=== PATIENT | male | born 1950 | race Caucasian/White ===

== ENCOUNTER 2021-07-07 11:48 | Emergency (ER) | payer MEDICARE ==
[~2021-07-07] VITALS: Ht 182.9 cm; Wt 109.8 kg
[2021-07-07] MEDS ORDERED: Voltaren100 GM TOP (15:28)
== END 2021-07-07 15:44 | disposition home or self-care (01) ==
LOC: ER 11:48
DX: M17.12 Unilateral primary osteoarthritis, left knee (principal); M23.307 Other meniscus derangements, unspecified meniscus, left knee; Z87.891 Personal history of nicotine dependence
CPT/HCPCS: 73564; 99283-25

== ENCOUNTER → 2021-09-26 | Outpatient (CLI) | payer MEDICARE ==
[~2021-09-26] MED LIST: Voltaren100 GM TOP
[2021-09-26 15:34] LABS: BASOPHILS ABSOLUTE AUTO 0.06 K/mm3 (0.00-0.23); BASOPHILS PERCENT AUTO 1 % (0-2); EOSINOPHILS ABSOLUTE AUTO 0.17 K/mm3 (0.00-0.68); EOSINOPHILS PERCENT AUTO 3 % (0-6); Hemoglobin 15.4 g/dL (13.5-17.5); IMMATURE GRAN ABSOLUTE AUTO 0.02 K/mm3 (0.00-0.10); IMMATURE GRAN PERCENT AUTO 0 % (0-1); LYMPHOCYTES ABSOLUTE AUTO 1.91 K/mm3 (0.84-5.20); LYMPHOCYTES PERCENT AUTO 33 % (21-46); MONOCYTES ABSOLUTE AUTO 0.49 K/mm3 (0.16-1.47); MONOCYTES PERCENT AUTO 8 % (4-13); Mean Corpuscular HGB 31.8 pg (26.0-34.0); Mean Corpuscular Volume 91 fL (80-100); Mean Platelet Volume 9.4 fL (9.1-12.4); NEUTROPHILS ABSOLUTE AUTO 3.17 K/mm3 (1.96-9.15); NEUTROPHILS PERCENT AUTO 55 % (41-73); Platelet Count 185 K/mm3 (150-400); RDW Coefficient Variation 11.9 % (11.7-14.2); RDW Standard Deviation 39.5 fL (35.1-46.3); Red Blood Cell Count 4.84 M/mm3 (4.30-5.90); White Blood Cell Count 5.82 K/mm3 (4.00-11.30)
[2021-09-26 15:43] LABS: Alanine Aminotransfer (ALT/SGP 74 U/L (12-78); Albumin, Blood 3.9 g/dL (3.4-5.0); Alk Phos 105 U/L (40-126); Anion Gap 9 mmol/L (6-16); Aspartate Aminotrans (AST/SGOT 38 U/L (12-37); Bilirubin, Total 0.4 mg/dL (0.1-1.0); Blood Urea Nitrogen 10 mg/dL (8-24); Bun/Creatinine Ratio 10.9 (12.0-20.0); CO2, Blood 27 mmol/L (21-32); Calcium, Blood 9.9 mg/dL (8.5-10.1); Chloride, Blood 99 mmol/L (98-108); Creatinine, Blood 0.92 mg/dL (0.60-1.20); Globulin, Blood 4.1 g/dL (2.2-4.0); Glomerular Filtration Rate >60 (60-); Glucose, Blood 343 mg/dL (70-99); Potassium, Blood 4.3 mmol/L (3.5-5.5); Sodium, Blood 135 mmol/L (136-145)
== END | disposition home or self-care (01) ==
LOC: LAB SHORT 15:30 → LAB 15:30
PROVIDERS: Physician Assistant
DX: E11.65 Type 2 diabetes mellitus with hyperglycemia (principal); N39.0 Urinary tract infection, site not specified
CPT/HCPCS: 80053; 83036; 85025; 87086; 87147

== ENCOUNTER → 2022-11-28 | Outpatient (CLI) | payer MEDICARE | END | disposition home or self-care (01) | LOC: LAB SHORT 15:28 | DX: E11.65 Type 2 diabetes mellitus with hyperglycemia (principal) | CPT/HCPCS: 36415; 83036 ==

== ENCOUNTER 2024-03-10 06:47 | Emergency (ER) | payer OTHER ==
[~2024-03-10] VITALS: Ht 182.9 cm; Wt 102.1 kg
[~2024-03-10 06:47] MED LIST changes: +ASPI81CH PO; +ATOR40TA PO; +BASAGLAR K100 UNIT/1 SC; +CODACE30 PO; +DULO30 PO; +Glipizide Xl2.5 MG PO; +INSULANI SC; +METF500 PO; +OZEMPIC0.25 MG/0. SC; +Percocet 5-3251 EACH PO; +TAMS.4ER PO
[2024-03-10] MEDS ORDERED: Ondansetron HCl 2 MG / ML 2ML Vial IV ONE (07:25)
[2024-03-10] MEDS ORDERED: Morphine Sulfate 4 MG/1 ML Injection IV ONE ×2 (07:25→09:05)
[2024-03-10] MEDS ORDERED: NS 1,000 ML IV SCH (07:25)
[2024-03-10 07:39] LABS: BASOPHILS ABSOLUTE AUTO 0.05 K/mm3 (0.00-0.23); BASOPHILS PERCENT AUTO 1 % (0-2); EOSINOPHILS ABSOLUTE AUTO 0.07 K/mm3 (0.00-0.68); EOSINOPHILS PERCENT AUTO 1 % (0-6); Hematocrit 47.8 % (37.0-53.0); Hemoglobin 16.4 g/dL (13.5-17.5); IMMATURE GRAN ABSOLUTE AUTO 0.03 K/mm3 (0.00-0.10); IMMATURE GRAN PERCENT AUTO 0 % (0-1); LYMPHOCYTES PERCENT AUTO 18 % (21-46); MONOCYTES ABSOLUTE AUTO 0.59 K/mm3 (0.16-1.47); MONOCYTES PERCENT AUTO 6 % (4-13); Mean Corpuscular HGB 29.8 pg (26.0-34.0); Mean Corpuscular HGB Conc 34.3 g/dL (31.5-36.5); Mean Corpuscular Volume 87 fL (80-100); Mean Platelet Volume 9.1 fL (9.1-12.4); NEUTROPHILS ABSOLUTE AUTO 6.99 K/mm3 (1.96-9.15); NEUTROPHILS PERCENT AUTO 74 % (41-73); Platelet Count 264 K/mm3 (150-400); RDW Coefficient Variation 12.6 % (11.7-14.2); Red Blood Cell Count 5.51 M/mm3 (4.30-5.90); White Blood Cell Count 9.43 K/mm3 (4.00-11.30)
[2024-03-10] MEDS ORDERED: Prochlorperazine Edisylate 10 mg Vial IV ONE (07:40)
[2024-03-10 09:03] LABS: Albumin, Blood 4.3 g/dL (3.4-5.0); Albumin/Globulin Ratio 0.9 (0.8-1.8); Bilirubin, Total 1.1 mg/dL (0.1-1.0); Bun/Creatinine Ratio 17.5 (12.0-20.0); Calcium, Blood 10.2 mg/dL (8.5-10.1); Creatinine, Blood 1.2 mg/dL (0.60-1.20); Globulin, Blood 4.8 g/dL (2.2-4.0); Magnesium, Blood 2.4 mg/dL (1.6-2.4); Potassium, Blood 4.6 mmol/L (3.5-5.5); Total Protein, Blood 9.1 g/dL (6.4-8.2)
[2024-03-10] MEDS ORDERED: Lidocaine 2% Jelly Uro-Jet UR ONE (09:10)
[2024-03-10 10:01] LABS: Source, Urine Foley catheter
[2024-03-10 10:04] LABS: Appearance, Urine Clear (Clear); Bilirubin, Urine Neg (Neg); Blood, Urine 4+ (Neg); Color, Urine Yellow (P-Yellow); Glucose Qualitative, Urine 4+ (Neg); Ketones, Urine 2+ (Neg); Leukocyte Esterase, Urine Neg (Neg); Nitrite, Urine Neg (Neg); Protein, Urine 1+ (Neg); Urobilinogen, Urine NORM (Normal)
[2024-03-10 10:15] LABS: Bacteria Rare /hpf; Squamous Epithelial Cells Rare /hpf (Few); White Blood Cells, Urine Not Seen /hpf (0-5)
[2024-03-10] MEDS ORDERED: TAMS.4ER PO (10:59)
[2024-03-10] MEDS ORDERED: MIRALAX17 GM PO (10:59)
[2024-03-10 11:00] VITALS: BP 136/83
== END 2024-03-10 11:22 | disposition home or self-care (01) ==
LOC: ER 06:47
PROVIDERS: Emergency Medicine
DX: N28.89 Other specified disorders of kidney and ureter (principal); N32.0 Bladder-neck obstruction; R33.8 Other retention of urine; K59.00 Constipation, unspecified; N13.30 Unspecified hydronephrosis; E11.9 Type 2 diabetes mellitus without complications; Z79.4 Long term (current) use of insulin; Z87.891 Personal history of nicotine dependence; Z79.84 Long term (current) use of oral hypoglycemic drugs; Z79.82 Long term (current) use of aspirin; Z79.899 Other long term (current) drug therapy
CPT/HCPCS: 51702; 74177; 80053; 81001; 83605; 83690; 83735; 85025; 96361-59; 96374-59; 96375-59; 96376-59; 99284-25; J0780; J2270; J2405; J7030; Q9967

== ENCOUNTER 2024-03-13 11:24 | Emergency (ER) | payer OTHER ==
[~2024-03-13] VITALS: Ht 182.9 cm; Wt 110.2 kg
[~2024-03-13 11:24] MED LIST changes: +MIRALAX17 GM PO
[2024-03-13 15:12] LABS: Source, Urine Foley catheter
[2024-03-13 15:18] LABS: Bilirubin, Urine Neg (Neg); Blood, Urine 4+ (Neg); Glucose Qualitative, Urine 4+ (Neg); Ketones, Urine Neg (Neg); Leukocyte Esterase, Urine 1+ (Neg); Nitrite, Urine Neg (Neg); Protein, Urine Neg (Neg); Urobilinogen, Urine NORM (Normal)
[2024-03-13 15:29] LABS: Appearance, Urine Clear (Clear); Color, Urine Pale Yellow (P-Yellow)
[2024-03-13 15:30] LABS: Bacteria Few /hpf; Squamous Epithelial Cells Rare /hpf (Few)
[2024-03-13 16:20] VITALS: BP 145/88
== END 2024-03-13 16:27 | disposition home or self-care (01) ==
LOC: ER 11:24
PROVIDERS: Student in an Organized Health Care Education/Training Program
DX: T83.091A Other mechanical complication of indwelling urethral catheter, initial encounter (principal); E11.9 Type 2 diabetes mellitus without complications; Z87.891 Personal history of nicotine dependence
CPT/HCPCS: 51702; 81001; 87077; 87086; 87186; 99283-25

== ENCOUNTER 2024-07-31 09:08 | Day surgery (SDC) | payer OTHER ==
[~2024-07-31] VITALS: Ht 182.9 cm; Wt 104.0 kg
[2024-07-31] VITALS (7 sets, daily range): BP systolic 124–139; BP diastolic 74–87
[~2024-07-31 09:08] MED LIST changes: +DICLOFENAC SOD2.5 M1
[2024-07-31] MEDS ORDERED: Lisinopril2.5 MG PO (09:48)
[2024-07-31] MEDS ORDERED: METF500C PO (09:51)
[2024-07-31] MEDS ORDERED: INSULANPEN SC (09:51)
[2024-07-31] MEDS ORDERED: Midazolam HCl 1MG / ML 2ML Vial ONE ×2 (10:01→11:12)
[2024-07-31] MEDS ORDERED: NS 1,000 ML IV ONE ×2 (10:02→10:05)
[2024-07-31] MEDS ORDERED: FentaNYL Citrate 50 MCG/ML 2 ML Injection ONE ×2 (10:02→11:12)
[2024-07-31] MEDS ORDERED: Heparin Sodium 1000 Units/ML 10ML MDV ONE (10:05)
[2024-07-31] MEDS ORDERED: NS 750 ML IV ONE (10:05)
[2024-07-31] MEDS ORDERED: Verapamil HCL 2.5 MG/ML 2ML Injection ONE ×2 (10:05→12:21)
[2024-07-31] MEDS ORDERED: Nitroglycerin 2 MG/20 ML BTL ONE (10:06)
--- NOTE | 2024-07-31 14:15 | NUR ---
PT AMB TO BATHROOM /C SBA. TOLERATED WELL. NEG BLEEDING OR SWELLING R GROIN AREA.
--- NOTE | 2024-07-31 14:47 | NUR ---
PT AND VERBALIZED UNDERSTANDING OF WRITTEN AND VERBAL D/C INST. IV REMOVED. PT TAKEN OUT OF THE HRT CENTER VIA W/C.
== END 2024-07-31 14:50 | disposition home or self-care (01) ==
LOC: MHTC 09:08
DX: N40.1 Benign prostatic hyperplasia with lower urinary tract symptoms (principal); N13.8 Other obstructive and reflux uropathy; R33.9 Retention of urine, unspecified; Z87.891 Personal history of nicotine dependence
CPT/HCPCS: 36246; 36248; 75716; 75774; 76937; 99152; 99153; C1760; C1769; C1887; C1894; J1644; J2250; J3010; J7030; J7050; Q9967